=== PATIENT | female | born 1985 | race Caucasian/White ===

== ENCOUNTER 2023-03-28 11:05 | Emergency (ER) | payer MEDICAID ==
[2023-03-28] MEDS ORDERED: Ketorolac 60 MG/2 ML SDV IM ONE (11:24)
[2023-03-28] MEDS ORDERED: Cyclobenzaprine 10 MG Tab PO ONE (11:24)
== END 2023-03-28 13:15 | disposition home or self-care (01) ==
LOC: JD.ED 11:05
DX: M54.32 Sciatica, left side (principal); F17.210 Nicotine dependence, cigarettes, uncomplicated; Z88.5 Allergy status to narcotic agent
CPT/HCPCS: 96372; 99283; A9270; J1885